=== PATIENT | male | born 1960 | race Caucasian/White ===

== ENCOUNTER 2025-01-29 12:04 | Emergency (ER) | payer BC, MEDICARE, SELFPAY ==
[2025-01-29 12:08] VITALS: BP 148/80
--- NOTE | 2025-01-29 12:50 | ED.GENMED ---
History of Present Illness
General
Chief Complaint: Head Injury
Source: patient and spouse
Exam Limitations: none
Time Seen by Provider: 01/29/25 12:39
Nursing documentation reviewed up to this point in time: agreed with
History of Present Illness
History of Present Illness:
64 yo male presents to the emergency department after dropping a metal well part onto his head from 4 feet. He denies loss of consciousness.
Past History
Past History
ED Past Medical History: Hypercholesterolemia
ED Past Surgical History: None
Social History
Tobacco: Non-smoker
Alcohol: None
Drug: None
Personal:
Living: with family
Review of Systems
Review of Systems
Allergies reviewed?: Yes
All Other Systems: Not applicable
Constitutional: Reports no symptoms
EENT: Reports no symptoms
Respiratory: Reports no symptoms
Cardiac: Reports no symptoms
ABD/GI: Reports no symptoms
: Reports no symptoms
Musculoskeletal: Reports no symptoms
Skin: Reports other (Scalp laceration)
Neurological: Reports no symptoms
Endocrine: Reports no symptoms
Hematologic/Lymphatic: Reports no symptoms
Psychiatric: Reports no symptoms
Phy Exam
Physical Exam
Physical Exam:
Physical Exam
General: no apparent distress, not acutely ill
Neck: supple. no meningeal signs. normal posterior pharynx
Heart: equal radial pulses.
HEENT: Pupils equal round reactive to light, EOMI
Lungs: no acute respiratory distress.
Abdomen: normal bowel sounds. not tender. no CVAT
Neuro: alert and oriented. no focal neurological deficits cranial nerves II through XII intact
Skin: no rash, 3 cm scalp laceration
Psychiatric: well kept. interactive and cooperative
Extremities: no edema. no calf tenderness. negative homans. good distal pulses
Course
Orders/Labs/Results
Orders:
Orders
01/29/25 12:48
CT Head W/o Iv Contrast Urgent
Comment:
Reason For Exam: hit head with heavy object
Tetanus/Diphth/Acelpertussis [Adacel] 0.5 ml IM .ONCE ONE
Vital Signs
Initial and Last Documented VS:
Initial Vital Signs
Temp Pulse Resp BP Pulse Ox
98.4 F 72 18 148/80 97
01/29/25 12:08 01/29/25 12:08 01/29/25 12:08 01/29/25 12:08 01/29/25 12:08
Last Documented Vital Signs
Temp Pulse Resp BP Pulse Ox
98.4 F 72 18 148/80 97
01/29/25 12:08 01/29/25 12:08 01/29/25 12:08 01/29/25 12:08 01/29/25 12:08
Procedures
Laceration Closure
Scalp:
Status of Wound: clean
Size of Wound in cm: 3
Description of Wound Edges: sharp
Preparation: cleaned with saline
Anesthesia: 1% Lidocaine with epi
Revision/Debridement: routine- no revision
Wound exploration: explored to base- no FB
Type of Closure: single layer closure and interrupted sutures
Skin Closure Material: 4-0 vicryl
Number of sutures: 5
MDM/Problems Addressed
Differential Diagnosis Includes:
intracranial hemorrhage, foreign body
MDM/Problems Addressed:
64 yo male with scalp laceration. No signs of intracranial hemorrhage. Tetanus updated.
*Radiology
Radiology exam reviewed: preliminary read by ED provider (ct head nad)
*Pulse Oximetry
Patient hypoxic: no
*Critical Care Note
Total Time (30-74mins, 75-104mins- exclusive of procedures): Not Applicable
Patient Management
Social determinants of health affecting care: Living situation and Strong social support
Escalation/DeEscalation of care consider admission/obs:
admit not indicated
ED Attending Note
-
Portions of this chart may have been created with voice recognition software.� Occasional wrong word or��sound alike� substitutions may have occurred due to the inherent limitations of voice recognition software.
Discharge Plan
Departure
Prescriptions:
No Action
cephalexin 500 MG capsule
500 mg PO QID Qty: 40 0RF
Referrals:
Isiah Ash DO [Family Provider] -
Interventions
Interventions:
*Risk Screen - Suicide Last Done: 01/29/25 12:08
*General Assessment Last Done: 01/29/25 12:08
*Neglect/Abuse Screening Last Done: 01/29/25 12:08
*ED- Fall Risk Assessment Last Done: 01/29/25 12:08
*ED COVID-19 Vaccine History Last Done: 01/29/25 12:08
ED- Neurological Assessment Last Done: 01/29/25 13:07
ED-Skin Assessment Last Done: 01/29/25 13:07
Discharge Date and Time
Print Language: PALAUAN
[2025-01-29] MEDS: ADACEL 0.5 ML IM (13:03)
== END 2025-01-29 14:14 | disposition home or self-care (01) ==
LOC: EMR 12:04
PROVIDERS: EMERGENCY PHYSICIAN Emergency Medicine; FAMILY PHYSICIAN Internal Medicine
DX: S01.01XA Laceration without foreign body of scalp, initial encounter (principal); W20.8XXA Other cause of strike by thrown, projected or falling object, initial encounter; E78.00 Pure hypercholesterolemia, unspecified; Z23 Encounter for immunization
CPT/HCPCS: 12002; 99284; 90471; 70450; 90715